=== PATIENT | male | born 1990 | race Caucasian/White ===

== ENCOUNTER 2022-01-14 13:41 | Outpatient (CLI) | payer OTHER ==
--- NOTE | 2022-01-14 14:27 | SLEEP CARE CONSULTATION ---
Information from patient questionnaire entered by Ariana Yuen. I have reviewed and concur with the information entered by Ariana Yuen. This document represents the service I personally performed and the decisions made by me, Petty Zee ARNP. History of Present Illness Service Date and Time: 01/14/2022 1341 Reason for Visit: New patient Chief Complaint: reports: Snoring, Excessive daytime sleepiness, Observed pauses in breathing Date of Onset: 1yr Usual bedtime: 11-1130pm Time it takes to fall asleep: instant Snores at night: Yes Observed to quit breathing while asleep: Yes Sleeps alone due to snoring: No Number of times waking at night: 1 if at all Reasons for waking at night: reports: Bathroom. denies: Choking, Snoring, Gasping for air Toss, Turn, or Twitch while sleeping: No Recalls having dreams: Yes Usually gets out of bed at: 330am work days 7-730 if off work Feels refreshed in the morning: No Morning headache: Yes (dull headache about 2 times a wk; last 3-4 hrs) Sleepy or fatigued during the day: Yes Ever fallen asleep while driving: No Takes day naps: Yes (just weekends; about 1.5 hours) Dreams during day naps: No Prior sleep studies: No Additional HPI information: I had the pleasure of seeing COLE CHUA today regarding the possibility of him having a sleep disorder. His current complaints are excessive daytime sleepiness, observed pauses in breathing and snoring. He has been told that he snores and has stopped breathing at night by his who is a nurse. The snoring seems to be worse when he sleeps on his back. He has woke up feeling "short of oxygen" but denies feeling like he is choking or gasping for air. He will fall asleep when really fatigued and not snore the whole night. He will wake up feeling rested on those nights. He states on nights that he snores through the night he wakes up feeling tired. He has high blood pressure and is on lisinopril. His brother is on a CPAP for sleep apnea. - Parasomnia Symptoms Ever been unable to move upon waking from sleep: No Walks in sleep: No Talks in sleep: No Ever acted out dreams in sleep: No Ever felt weak in the knees when startled or emotional: No Bothered by creepy, crawly, restless sensations in legs: No Problems with memory or concentration: No Subjective Initial [place] Sleepiness Scale score: 11 (01/14/2022) Past Medical History Past Medical History: reports: Hypertension Social History The patient's occupation is a AM. Patient is and lives in [place]. Have you smoked in the past 12 months: No Alcohol use: Yes Alcohol amount and frequency: 3-4 drinks weekly Caffeine use: Yes Caffeine amount and frequency: 2-3 drinks daily Family History Family history of sleep disordered breathing: Yes Family Hx Sleep Apnea: Sibling: Snoring, Sleep apnea - Treated, Grandparent: Snoring, Sleep apnea - Untreated Allergies and Home Medications Known drug allergies: No Drug allergies reviewed: Yes (NKDA) Home medication list reviewed: Yes Allergy and home medication list: Medications: Lisinopril Review of Systems Weight gain over past 5 years: 60 Weight loss over past 5 years: 60 Cardiovascular: reports: high blood pressure Gastrointestinal: reports: heartburn Ear/Nose/Throat: reports: nasal congestion, sinus problems, nose bleeds, wisdom teeth removed. denies: tonsillectomy Immunologic: reports: sneezing, allergies to food or environment Physical Exam Vital signs obtained and entered by: ARIANA Carranza MA Blood Pressure: 144/98 (left arm) Cuff size: regular Heart Rate: 84 O2 Saturation: 95 Height: 6 ft 1 in Weight: 236 lb 9.6 oz Body Mass Index: 31.1 BMI Classification: Obese Neck circumference: 18 Mouth and throat: narrow oropharynx Soft palate: long Hard palate: arched Uvula: normal Uvula visualization: 25% Mallampati Class III Tongue: enlarged in size with teeth bernabe on lateral edges Neck: normal w/o lymphadenopathy or thyromegaly Heart: regular rate and rhythm Lungs: clear bilaterally Impression and Plan 1. Suspected Obstructive Sleep Apnea-Hypopnea Syndrome, as suggested by a history of loud and irregular snoring, observed cessation of breath while asleep, morning headache, unrefreshed sleep, and excessive daytime sleepiness. Narrow oropharynx and obesity are common predisposing factors for obstructive sleep apnea-hypopnea syndrome. I recommend proceeding to polysomnography to confirm the diagnosis and to assess severity. If the patient has significant sleep disordered breathing, a manual CPAP titration study will also be performed to find the optimal treatment pressure. I informed the patient of what the sleep studies involve and after some discussion, obtained agreement to proceed. The pathophysiology of obstructive sleep apnea-hypopnea syndrome was discussed with the patient and health risks of cardiovascular and cerebrovascular disease if not treated. Risks of drowsy driving discussed in detail and patient advised to avoid long distance driving and to tack puller at the first sign of drowsiness. Patient agreed to plan. * Schedule polysomnography * Avoid long distance driving or driving when feeling sleepy. * Avoid alcohol, sedative and muscle relaxant around bedtime. * Attempt to lose weight. * Review instructions provided by trained office staff on how to prepare for the sleep study. * Return for follow-up after sleep study completed. Counseling Topics: Weight loss health impact Visit Type: In Office Time Spent with Patient (minutes): 32 Provider Statement: I spent 100% of the Face to Face Visit with the patient with greater than 50% spent counseling the patient and coordination of care.
[2022-01-14 14:28] VITALS: BP 144/98
== END 2022-01-14 13:42 | disposition home or self-care (01) ==
LOC: SC 13:41
PROVIDERS: ATTEND Nurse Practitioner Family
DX: R06.83 Snoring (principal); G47.8 Other sleep disorders; R06.81 Apnea, not elsewhere classified; R51.9 Headache, unspecified; G47.10 Hypersomnia, unspecified; I10 Essential (primary) hypertension; E66.9 Obesity, unspecified; Z68.31 Body mass index [BMI] 31.0-31.9, adult
CPT/HCPCS: 99203; 99212

== ENCOUNTER 2022-03-30 14:57 | Outpatient (CLI) | payer OTHER ==
--- NOTE | 2022-03-30 14:20 | SLEEP CARE CONSULTATION ---
Information from patient questionnaire entered by Ariana Yuen. I have reviewed and concur with the information entered by Ariana Yuen. This document represents the service I personally performed and the decisions made by , Petty Zee ARNP. History of Present Illness Service Date and Time: 03/30/2022 1400 Initial [place] Sleepiness Scale score: 11 (01/14/2022) Current [place] Sleepiness Scale score: 16 (03/30/22) Additional HPI information: COLE CHUA returns via video telehealth visit for follow up and results of the recently performed home sleep study. I explained the pathophysiology behind obstructive sleep apnea. We then spent quite a bit of time discussing different treatment options. For mild obstructive sleep apnea, surgery and oral appliance are alternatives to nasal CPAP therapy but in moderate or severe cases, nasal CPAP is the most effective and reliable treatment. Because apnea is primarily in supine position, then positional management therapy could be effective. Methods discussed such as positioning with pillows to prevent supine sleep. I reviewed the impact of weight changes on sleep apnea and strongly recommended losing weight. After some discussion, the patient opted to go with the nasal CPAP therapy. Nasal autoCPAP set at 4-15 cmH20 will be ordered with rationale explained. A manual titration study will be ordered if unable to find optimal pressure with office adjustments. I explained how CPAP machine works and what to expect when using the machine. Using CPAP every night in order to get used to it was emphasized. Patient advised to put CPAP mask on before getting into bed so as not to fall asleep without CPAP. To assist acclimation to CPAP use, it could also be used for a short time during day while reading or watching TV. The patient was instructed to call the CPAP supplier to discuss any mechanical problem that may occur. If the mask given is uncomfortable or is difficult to keep on through the night even with adjustment, contact the CPAP supplier as many will replace with another mask style if notified before 30 days. If snoring or perceives is not getting enough air or too much air from the machine, notify this office. Patient counseled not drink alcohol less than 4 hours before bedtime as it can increase snoring and apnea. Patient was cautioned about risks of drowsy driving until sleepiness symptoms resolve. Patient denies drowsy driving. Sleep Study - Results Type of Sleep Study: Home sleep study (COMPLETED 03/24/22) Prior sleep studies: No Polysomnography/Home Sleep Study results: Physician Impression: The quality of the study is good. The length of the study is adequate (> 240 minutes). Please also see the tabulated and graphic data. 1. Obstructive Sleep Apnea-Hypopnea (ICD-10 G47.33), mild, with an AHI of 14.1/hr and francisco SaO2 of 81%. During the study, the patient had 24 apneas (24 obstructive, 0 central, 0 mixed) and 73 hypopneas. The longest episode lasted 109.0 seconds. The respiratory events occurred more frequently during supine sleep (supine AHI was 24.9 and non-supine, 7.70). 2. Hypoxemia (ICD-10 R09.02), mild, with the lowest oxygen saturation of 81 % and 5.5 minutes with SaO2 under 90%. Baseline oxygen saturation was normal (Average oxygen saturation was 94%). Allergies and Home Medications Drug allergies reviewed: Yes (NKDA) Home medication list reviewed: Yes (Amlodipine 5 mg daily; stopped lisinopril) Review of Systems Review of systems same as previous: Yes (no changes) Physical Exam Vital signs obtained and entered by: via phone ARIANA CarranzaGREGORY Height: 6 ft 1 in (per pt ) Weight: 230 lb (per pt) Body Mass Index: 30.3 BMI Classification: Obese Impression and Plan 1. Obstructive Sleep Apnea-Hypopnea Syndrome, mild, with lowest oxygen saturation of 81%. Obviously this is the cause of the patients symptoms of unrefreshed sleep, and excessive daytime sleepiness. Positive pressure therapy could benefit hypertension. As mentioned above, the patient will be started on nasal autoCPAP therapy with pressure set at 4-15 cmH2O. Compliance guidelines also reviewed. A copy of compliance guidelines will be given for reference at check out. Because the apnea is more severe supine, I instructed to avoid sleeping supine using pillow positioning until able to start CPAP use. 2. Hypoxemia, mild, with the lowest oxygen saturation of 81 % and 5.5 minutes with SaO2 under 90%. His baseline oxygen saturation was normal with an average oxygen saturation of 94%. * Nasal auto CPAP therapy, pressure at 4-15 cm H2O. * Attempt to lose weight. * Avoid alcohol consumption near bedtime. * Avoid supine sleep until using CPAP. * The patient is again cautioned about driving until sleepiness completely resolves. * Return one month after CPAP obtained. I will assess response to therapy and compliance at that time. Counseling Topics: Weight loss health impact Visit Type: Telehealth Video Video Type: Doximity Patient Location: Home Location of Provider: Office Patient agrees and consents to this telehealth visit type: Yes Patient agrees to have their insurance billed: Yes Time Spent with Patient (minutes): 20 Provider Statement: I spent 100% of the Telehealth Video Call with the patient with greater than 50% spent counseling the patient and coordination of care.
== END 2022-03-30 14:58 | disposition home or self-care (01) ==
LOC: SC 14:57
PROVIDERS: ATTEND Nurse Practitioner Family
DX: G47.33 Obstructive sleep apnea (adult) (pediatric) (principal); R09.02 Hypoxemia; E66.9 Obesity, unspecified; Z68.30 Body mass index [BMI] 30.0-30.9, adult

== ENCOUNTER 2022-05-28 11:39 | Outpatient (CLI) | payer OTHER ==
--- NOTE | 2022-05-28 11:26 | SLEEP CARE CONSULTATION ---
Information from patient questionnaire entered by Ariana Yuen. I have reviewed and concur with the information entered by Ariana Yuen. This document represents the service I personally performed and the decisions made by , Petty Zee ARNP. History of Present Illness Service Date and Time: 05/28/2022 1100 Previous diagnosis: Mild, Obstructive Sleep Apnea-Hypopnea Syndrome AHI: 14.1 (in 2022) Reason for follow up: first compliance Equipment type: CPAP (Resmed Airsense 10, s/u 03/2022) Equipment obtained from: Other ([facility]; got initial supplies) Mask style: Nasal Mask brand: Respironics (Dreamwear) Backup mask available: No (will keep old mask when replaced) Prior sleep studies: No Type of Sleep Study: Home sleep study (COMPLETED 03/24/22) HPI additional information: COLE CHUA was diagnosed to have mild, AHI 14.1, obstructive sleep apnea-hypopnea syndrome and returns via video telehealth visit today for CPAP therapy first compliance follow-up. Sleep Study - Results Type of Sleep Study: Home sleep study (COMPLETED 03/24/22) Prior sleep studies: No CPAP Compliance Data - Data Reviewed with Patient Average duration of nightly device use: 4 hours 7 minutes Compliance rate %: 29 (29/48 days used) Current pressure setting (cmH2O): 4-15 (median 6.2, avg 8.8, max 10.2) Average residual AHI: 0.7 Central apnea: 0.1 Obstructive apnea: 0.3 Average large leak: 0.1 lpm Subjective Missed days of use due to: reports: mask issues, illness (has sinus infection) Patient concerns: reports: nasal congestion (has sinus infection), dry mouth, nose, throat (dry nose), epistaxis (occaisional). denies: aerophagia, mask discomfort, air blowing in eyes, mask leak noise, condensation in mask/hose Observed to snore while using device: No (occasional snores) Current pressure setting perceived as: too low (only at beginning of night) On therapy, patient: reports: sleeping better, awakening more refreshed, being more awake and alert during the day, more rested overall. denies: drowsiness while driving Initial [place] Sleepiness Scale score: 11 (01/14/2022) Current [place] Sleepiness Scale score: 9 (05/28/22) Allergies and Home Medications Known drug allergies: No Drug allergies reviewed: Yes Home medication list reviewed: Yes (Augmentin - temp 10 days left) Allergy and home medication list: Allergies No Known Drug Allergies Allergy (Verified 05/27/22 13:51) Review of Systems Review of systems same as previous: No (sinus infection) Physical Exam Vital signs obtained and entered by: ARIANA Carranza MA Height: 6 ft 1 in (per pt ) Weight: 230 lb (PER PT) Body Mass Index: 30.3 BMI Classification: Obese Impression and Plan 1. Obstructive Sleep Apnea-Hypopnea Syndrome, mild, with poor treatment compliance and good apnea control. On CPAP therapy, the patient has better sleep quality and is more rested overall. Patient's compliance has been down due to mask issues as well as a sinus infection. He has contacted his DME about the mask and thinks they will be getting him a different mask. Patient feels he could use some more pressure, that it is too low at beginning of night. I will increase ramp starting pressure to 6 cmH2O. The patients pressure will be changed to autoCPAP 9-12 cmH20 to reflect pressures being used. Patient advised to contact me if pressure change is uncomfortable so that it can be adjusted. Goals for apnea control discussed. Patient's apnea severity and rationale for treatment to reduce apnea, improve sleep quality and reduce cardiovascular and cerebrovascular events was reviewed. I also reviewed the benefit of consistent device use of CPAP for hypertension. 2. Obesity, unspecified. Currently patients BMI is 30.3. Obesity increases the risk of apnea, CPAP pressure requirements and overall health risks especially cardiovascular and diabetes. Thus patient is advised to lose weight. * Change auto CPAP pressure to 9-12 cmH2O * Increase ramp starting pressure to 6 cmH2O * Notify me if snoring with mask or feeling that the pressure is too much or too little * Attempt to lose weight * Call this office if any problems using CPAP * Return for follow up in 1-2 months, or sooner if concerns arise Counseling Topics: Spare mask, Weight loss health impact Visit Type: Telehealth Video Video Type: Doximity Patient Location: Home Location of Provider: Office Patient agrees and consents to this telehealth visit type: Yes Patient agrees to have their insurance billed: Yes Time Spent with Patient (minutes): 21 Provider Statement: I spent 100% of the Telehealth Video Call with the patient with greater than 50% spent counseling the patient and coordination of care.
== END 2022-05-28 11:40 | disposition home or self-care (01) ==
LOC: SC 11:39
PROVIDERS: ATTEND Nurse Practitioner Family
DX: G47.33 Obstructive sleep apnea (adult) (pediatric) (principal); E66.9 Obesity, unspecified; Z68.30 Body mass index [BMI] 30.0-30.9, adult

== ENCOUNTER 2022-09-28 08:58 | Emergency (ER) | payer OTHER ==
[2022-09-28] MEDS: SODIUM CHLORIDE 0.9% 1,000 ML IV STA (09:45)
[2022-09-28] MEDS: ONDANSETRON 4 MG/2 ML VIAL IVP STA (09:45)
[2022-09-28 10:03] LABS: BASOPHILS # (AUTO) 0.1 10^3/uL (0.0-0.1); BASOPHILS % (AUTO) 0.7 %; EOSINOPHILS # (AUTO) 0.1 10^3/uL (0.0-0.7); HGB - HEMOGLOBIN 15.8 g/dL (14.0-18.0); LYMPHOCYTES # (AUTO) 1.2 10^3/uL (1.5-3.5); LYMPHOCYTES % (AUTO) 16.8 %; MEAN CORPUSCULAR HEMOGLOBIN 29.8 pg (27.0-31.0); MEAN CORPUSCULAR HGB CONC 34.3 g/dL (32.0-36.0); MEAN CORPUSCULAR VOLUME 86.8 fL (80.0-94.0); MEAN PLATELET VOLUME 9.3 fL (7.4-11.4); MONOCYTES # (AUTO) 0.5 10^3/uL (0.0-1.0); MONOCYTES % (AUTO) 6.3 %; NEUTROPHILS # (AUTO) 5.3 10^3/uL (1.5-6.6); NEUTROPHILS % (AUTO) 73.8 %; PLT - PLATELET COUNT 256 10^3/uL (130-450); RED CELL DISTRIBUTION WIDTH 12.4 % (12.0-15.0); WHITE BLOOD COUNT 7.1 x10^3/uL (4.8-10.8)
[2022-09-28 10:29] LABS: ALBUMIN/GLOBULIN RATIO 1.7 (1.0-2.2); BILIRUBIN,TOTAL 1.5 mg/dL (0.2-1.0); CALCIUM 9.9 mg/dL (8.5-10.3); CREATININE 0.8 mg/dL (0.6-1.3); POTASSIUM 4.3 mmol/L (3.5-4.5); TOTAL PROTEIN 7.9 g/dL (6.4-8.9)
--- NOTE | 2022-09-28 10:59 | XRAY Report ---
PROCEDURE: Chest 1 View X-Ray INDICATIONS: CP/DYSPNEA TECHNIQUE: One view of the chest was acquired. COMPARISON: None. FINDINGS: Surgical changes and devices: None. Lungs and pleura: No pleural effusions or pneumothorax. Lungs are clear. Mediastinum: Mediastinal contours appear normal. Heart size is normal. Bones and chest wall: No suspicious bony lesions. Overlying soft tissues appear unremarkable. IMPRESSION: No acute cardiopulmonary process. Reviewed by: Savita Verma MD on 09/28/2022 10:57 AM PDT Approved by: Savita Verma MD on 09/28/2022 10:57 AM PDT Station ID: [id number]
--- NOTE | 2022-09-28 11:34 | ED Physician Documentation ---
PD HPI CHEST PAIN - Stated complaint Stated Complaint: CHEST PRESSURE/JAW PX/NAUSEA - Chief complaint Chief Complaint: Cardiac - History obtained from History obtained from: Patient, Family - Additional information Additional information: 31-year-old male with history of hypertension presents for chest pressure and shortness of breath since this morning. Patient states that he was having an argument with his significant other when made argument he felt very nauseous and his partner states that he turned "grossly pale". He continued to have chest pressure and the sensation that he could not catch his breath and so decided to present for evaluation. Review of Systems Constitutional: denies: Fever, Chills Throat: denies: Dental pain / toothache, Oral lesions / sores, Sore throat Cardiac: reports: Chest pain / pressure. denies: Palpitations, Calf pain Respiratory: reports: Dyspnea. denies: Cough, Wheezing GI: reports: Nausea. denies: Abdominal Pain, Vomiting, Constipation, Diarrhea : denies: Dysuria, Frequency, Hesitancy PD PAST MEDICAL HISTORY - Past Medical History Past Medical History: Yes Cardiovascular: Hypertension - Past Surgical History Past Surgical History: Yes Ortho: Other - Present Medications Home Medications: Ambulatory Orders Medication Instructions Recorded Confirmed amLODIPine [Norvasc] 5 mg ORAL DAILY 03/30/22 09/28/22 Gabapentin [Neurontin] 300 mg PO TID 09/28/22 09/28/22 Ondansetron Odt [Zofran] 4 mg TL Q6H PRN #30 tablet 09/28/22 - Allergies Allergies/Adverse Reactions: Allergies Allergy/AdvReac Type Severity Reaction Status Date / Time No Known Drug Allergies Allergy Verified 09/28/22 09:02 - Social History Does the pt smoke?: No Smoking Status: Never smoker PD ED PE NORMAL - Vitals Vital signs reviewed: Yes - General General: Alert and oriented X 3, No acute distress, Well developed/nourished - HEENT HEENT: Atraumatic, PERRL, EOMI - Neck Neck: Supple, no meningeal sign, No JVD - Cardiac Cardiac: RRR, No murmur, Strong equal pulses - Respiratory Respiratory: No respiratory distress, Clear bilaterally - Abdomen Abdomen: Soft, Non tender, Non distended - Derm Derm: Normal color, Warm and dry, No rash - Extremities Extremities: No deformity, No tenderness to palpate, Normal ROM s pain - Neuro Neuro: Alert and oriented X 3, record pressman 2-12 intact, No motor deficit, Normal speech - Psych Psych: Normal mood, Normal affect Results - Vitals Vitals: Vital Signs - 24 hr 09/28/22 09/28/22 09/28/22 09:03 09:50 10:55 Temperature 37.4 C 37.2 C Heart Rate 91 91 80 Respiratory 16 17 16 Rate Blood Pressure 144/95 H 128/86 H 129/85 H O2 Saturation 97 95 99 09/28/22 12:00 Temperature Heart Rate 90 Respiratory 24 Rate Blood Pressure 144/98 H O2 Saturation 96 Oxygen O2 Source Room air - EKG (time done) 0903 EKG releavant findings:: EKG personally interpreted by author of this note. Relevant findings are: Rhythm: NSR [place]: Normal Intervals: Normal [place] QRS: Normal Ischemia: Normal ST segments Computer interpretation: Agree with computer - Labs Labs: Laboratory Tests 09/28/22 09/28/22 09/28/22 09:05 09:45 09:45 WBC 7.1 RBC 5.30 Hgb 15.8 Hct 46.0 MCV 86.8 MCH 29.8 MCHC 34.3 RDW 12.4 Plt Count 256 MPV 9.3 Neut # (Auto) 5.3 Lymph # (Auto) 1.2 L [place] # (Auto) 0.5 Eos # (Auto) 0.1 Baso # (Auto) 0.1 Absolute Nucleated RBC 0.00 Nucleated RBC % 0.0 D-Dimer < 200.0 L Sodium Potassium Chloride Carbon Dioxide Anion Gap BUN Creatinine Estimated GFR (MDRD) Glucose Calcium Total Bilirubin AST ALT Alkaline Phosphatase Troponin I High Sens 3.7 Total Protein Albumin Globulin Albumin/Globulin Ratio Lipase 09/28/22 09:45 WBC RBC Hgb Hct MCV MCH MCHC RDW Plt Count MPV Neut # (Auto) Lymph # (Auto) [place] # (Auto) Eos # (Auto) Baso # (Auto) Absolute Nucleated RBC Nucleated RBC % D-Dimer Sodium 138 Potassium 4.3 Chloride 104 Carbon Dioxide 26 Anion Gap 8.0 BUN 11 Creatinine 0.8 Estimated GFR (MDRD) 111 Glucose 101 Calcium 9.9 Total Bilirubin 1.5 H AST 87 H ALT 161 H Alkaline Phosphatase 80 Troponin I High Sens Total Protein 7.9 Albumin 5.0 Globulin 2.9 Albumin/Globulin Ratio 1.7 Lipase 11 PD Medical Decision Making - ED course Complexity details: reviewed results, re-evaluated patient, considered differential, d/w patient, d/w family ED course: Chest pain, shortness of breath, nausea. Heart score 1 due to risk factor of hypertension. EKG is normal sinus rhythm without any concerning findings. Patient resting comfortably in bed, physical exam is unremarkable. Laboratory work is unremarkable. Chest x-ray clear, patient has received IV fluids and Zofran and feels improved. No obvious explanation for patient's symptoms. Will be discharged with Zofran prescription. Advised that he should call his PCP for follow-up appointment. Patient requested note for work, which was provided. Departure - Departure Disposition: 01 Home, Self Care Clinical Impression: Dyspnea, Chest pain Condition: Stable Instructions: ED Chest Pain Atypical Unkn Cause Prescriptions: Ondansetron Odt [Zofran] 4 mg TL Q6H PRN #30 tablet PRN Reason: Nausea / Vomiting Forms: PCP List Discharge Date/Time: 09/28/22 12:00
[2022-09-28 12:08] VITALS: BP 144/98
== END 2022-09-28 12:00 | disposition home or self-care (01) ==
LOC: ED 08:58
DX: R07.89 Other chest pain (principal); R06.00 Dyspnea, unspecified; I10 Essential (primary) hypertension
CPT/HCPCS: 36415; 80053; 83690; 84484; 85025; 85379; 93005; 96374; 99284